=== PATIENT | female | born 1950 | race Hispanic/Latino ===

== ENCOUNTER 2024-09-22 20:09 | Emergency (ER) | payer OTHER ==
[~2024-09-22] VITALS: Ht 147.3 cm; Wt 102.1 kg
[2024-09-22 20:45] VITALS: BP 160/95; PULSE 65; RESP 16; TEMP 99.3; O2SAT 98
--- NOTE | 2024-09-22 21:24 | HMCIMG ---
HIP UNILAT 2-3VW LEFT CLINICAL HISTORY: pain COMPARISON: None TECHNIQUE: AP pelvis and lateral view of the left hip. images were obtained. FINDINGS: No obvious fracture or dislocation. No joint effusion. The soft tissues appear unremarkable. No radiopaque foreign bodies. IMPRESSION: No acute findings.
--- NOTE | 2024-09-22 21:39 | ERN ---
General Chief Complaint: Hip Pain/Injury Stated Complaint: C/O PAIN TO LEFT HIP; DENIES ANY TRAUMA Time Seen by MD: 20:12 Time Seen by Midlevel: 20:12 Source: patient History of Present Illness Initial Comments The patient is a 73-year-old female presenting to the emergency department with atraumatic left hip pain that started just prior to arrival. Patients specifically denies any direct injury to the area or falling. Denies any numbness or focal weakness to bilateral lower extremities. Denies any urinary/bowel incontinence. Patient states the pain is localized to the left lateral buttock area. No other symptoms reported Allergies: Coded Allergies: No Known Drug Allergies (Unverified Allergy, Unknown, 03/27/14) Past Medical History Past Medical History: Diabetes-Type II, High Cholesterol, Hypertension, Hypothyroid Past Surgical History: Other ROS Dictation CONSTITUTIONAL: Negative except for HPI HEAD/FACE: Negative except for HPI EENT: Negative except for HPI RESPIRATORY: Negative except for HPI GASTROINTESTINAL/ABDOMINAL: Negative except for HPI GENITOURINARY: Negative except for HPI MUSCULOSKELETAL: Negative except for HPI INTEGUMENTARY: Negative except for HPI NEUROLOGICAL/PSYCH: Negative except for HPI HEMATOLOGIC/LYMPHATIC: Negative except for HPI All Systems Negative, Except as noted above. 13 point review of systems assessed and all negative except for above. Physical Exam Physical Exam Dictation Vital Signs reviewed General Appearance: Alert, oriented x 3, no acute distress, well developed, nourished. Head and Face: non-traumatic. Eyes: PERRL, pink conjunctivas, eyelid no trauma, anterior chamber with arcus senilis. Ears: Pinnas intact and no signs of trauma or erythema ear canals clear and no discharge TM no erythema Nose: No discharge, no bleeding. Oropharynx: Mouth normal, tongue pink, pharynx clear,no erythema, tonsils no exudates, no abscesses noted, mucous membrane moist Neck: Supple, non-tender, no thyromegaly, no masses, no JVD, no bruits Breast:Deferred Chest:No tenderness, no crepitus, no paradoxical movement, no retractions Lungs:Clear, well-ventilated, symmetric, no rales, no wheezing, no rhonchi, no stridor, good breath sounds bilaterally Heart: Regular rate, regular rhythm, no murmur, no gallops Vascular: no peripheral edema, Abdomen: Soft, positive bowel sounds, nondistended, no guarding, nontender, no rebound, no masses no hepatomegaly, no splenomegaly, no Bravo's sign, no hernias. Rectal: Deferred Genital: Deferred Neurological: Normal speech, motor function intact, sensory function intact Musculoskeletal: Neck nontender, full range of motion, back nontender, full range of motion, Extremities: nontender, full range of motion Skin: Color pink, dry, no turgor, no rash, no lacerations, no abrasions, no contusions. Lymphatic: Deferred MDM MDM: The patient is a 73-year-old female presenting to the emergency department with atraumatic left hip pain that started just prior to arrival. Patients specifically denies any direct injury to the area or falling. Denies any numbness or focal weakness to bilateral lower extremities. Denies any urinary/bowel incontinence. Patient states the pain is localized to the left lateral buttock area. No other symptoms reported. On physical examination patient is in no acute distress. Patient is ambulatory without assistance and with a normal gait. Patient was neurologically intact. Sensation is intact to bilateral lower extremities. Patient was full range motion of bilateral lower extremities. There is reproducible pain with palpation to the left lateral gluteal region. There are no obvious signs of external trauma. There are no overlying rashes. The hip x-ray was obtained to rule out any acute fracture or dislocation however the x-ray does not show any acute injury. The patient was given pain medication in the emergency department but we will ultimately need to follow up with your primary care doctor. Differential diagnosis: Muscle strain, sciatica, fracture, dislocation, musculoskeletal pain There are no social concerns with this patient. Prescription drug management Prescriptions will include: None Medical management and examination interpretation discussions were had by me with other qualified healthcare professionals as indicated for the patient's care. ED Course Orders Procedure Category Date Status Time Hip Unilat 2-3vw Left RAD 09/22/24 Resulted 20:17 Ketorolac PHA 09/22/24 Complete Tromethamine 15mg/Ml 20:30 Hydrocodone/Apap PHA 09/22/24 Complete 10/325 Tab ([place] 10) 20:30 Current Medications Medications (Trade) Dose Ordered Sig/Ashlie Route PRN Reason Start Time Stop Time Status Last Admin Dose Admin Acetaminophen/ Hydrocodone Bitart (NORco 10) 1 tab ONCE ONCE PO 09/22/24 20:30 09/22/24 20:31 DC Ketorolac Tromethamine (toRADol) 15 mg ONCE ONCE IM 09/22/24 20:30 09/22/24 20:31 DC Vital Signs Date Time Temp Pulse Resp B/P (MAP) Pulse Ox O2 Delivery O2 Flow Rate FiO2 09/22/24 20:45 99.3 65 16 160/95 98 Room Air* 0 21 09/22/24 20:11 99.3 67 20 160/101 95 Room Air [facility] [address] [place] [id number] IMAGING REPORT Signed PATIENT: RADHA MOJICA MR#: [id number] : 1950 SEX: F AGE: 73 LOCATION: [facility] ORDER 17 STATUS: REG ER REPORT#: [id number] SERVICE 16 REASON: pain ORDERING PHYSICIAN: MAYRA MCGREGOR PROCEDURE: HIP U 2V L - HIP UNILAT 2-3VW LEFT HIP UNILAT 2-3VW LEFT CLINICAL HISTORY: pain COMPARISON: None TECHNIQUE: AP pelvis and lateral view of the left hip. images were obtained. FINDINGS: No obvious fracture or dislocation. No joint effusion. The soft tissues appear unremarkable. No radiopaque foreign bodies. IMPRESSION: No acute findings. DICTATED BY: ITZEL SCHMIDT DO DATE: 09/22/242120 ELECTRONICALLY SIGNED BY: ITZEL SCHMIDT DO DATE: 09/22/242123 DX & DISP Disposition: Discharge Departure Impression: Primary Impression: Muscle strain of gluteal region Condition: Stable Additional Instructions: Your left hip x-ray does not show any evidence of an acute fracture or dislocation. Your pain appears to be coming from the soft tissue of your left gluteal area. You will need to follow up with your primary care doctor in 2-3 days for repeat evaluation. Referrals: NEGAR PADILLA JR, MD (PCP) I have reviewed the case, and I agree with, Diagnosis and Plan I performed the substantive portion of the visit. I have reviewed and personally made and approve the management plan that is documented in the note by myself or the LJ. I acknowledge for responsibility for the patient's management plan. MAYRA MCGREGOR Sep 22, 2024 21:39
[2024-09-22] MEDS: ketOROlac 15MG/ML VIAL (15MG/ML) IM ONE (21:44)
[2024-09-22] MEDS: HYDROcodone/acetaMINOPHEN 10/325 MG TAB PO ONE (21:45)
== END 2024-09-22 22:05 | disposition home or self-care (01) ==
LOC: EDH 20:09
DX: S39.012A Strain of muscle, fascia and tendon of lower back, initial encounter (principal); E03.9 Hypothyroidism, unspecified; E11.9 Type 2 diabetes mellitus without complications; E78.00 Pure hypercholesterolemia, unspecified; I10 Essential (primary) hypertension; X58.XXXA Exposure to other specified factors, initial encounter; Y93.89 Activity, other specified; Y92.89 Other specified places as the place of occurrence of the external cause; Y99.8 Other external cause status
CPT/HCPCS: 99283; 73502; 96372; J1885

== ENCOUNTER 2024-10-02 16:48 | Emergency (ER) | payer OTHER ==
[~2024-10-02] VITALS: Ht 147.3 cm; Wt 99.8 kg
[2024-10-02] MEDS ORDERED: IBUP-2070 PO (17:22)
[2024-10-02] MEDS ORDERED: GABA-529 PO (17:22)
[2024-10-02] MEDS ORDERED: ACYC-138 PO (17:22)
--- NOTE | 2024-10-02 17:24 | ERN ---
ED Note History of Present Illness Stated Complaint: RIGHT FLANK PAIN, RASH Chief Complaint: Skin Rash/Abscess Time Seen by MD: 17:03 Time Seen by Midlevel: 17:05 Dictation: Ms Hensley is a 73-year-old female with history of obesity, type 2 diabetes, h ypertension, hyperlipidemia, and hypothyroidism presented to the emergency department this evening for evaluation of rash. She states that she noted painful, pruritic rash to left lateral hip last night. She states there are no open wounds and no drainage. She states she has been taking Tylenol no improvement. She denies having fever, chills, shortness of breath, cough, chest pain, palpitations, edema, abdominal pain, nausea, vomiting diarrhea, dysuria, headache, or dizziness. She states she has had no elevation of blood glucose readings. PCP: Dr. Analy Hensley. Allergies: Coded Allergies: No Known Drug Allergies (Unverified Allergy, Unknown, 03/27/14) Home Meds Active Scripts Acyclovir (Acyclovir) 800 Mg Tablet, 800 MG PO 5XDAY for 7 Days, #35 TAB 0 Refills Prov:ANTOINE GARCIA NP 10/02/24 Ibuprofen (Ibuprofen) 600 Mg Tablet, 1 TAB PO TID for pain for 10 Days, #30 TAB 0 Refills with food Prov:ANTOINE GARCIA NP 10/02/24 Gabapentin (Gabapentin) 100 Mg Capsule, 1 CAP PO TID for pain for 14 Days, #42 CAP 0 Refills Prov:ANTOINE GARCIA NP 10/02/24 Past Medical History Past Medical History: Diabetes-Type II, High Cholesterol, Hypertension, Hypothyroid Surgical History: Other PSYCH History: no pertinent psych hx History: Not Applicable RN Note Reviewed/Agreed w/PFSH: Yes Review of System Dictation REVIEW OF SYSTEMS: CONSTITUTIONAL: Patient denies fevers, chills, sweats and weight changes. EYES: Patient denies any visual symptoms. EARS, NOSE, AND THROAT: No difficulties with hearing. No symptoms of rhinitis or sore throat. CARDIOVASCULAR: Patient denies chest pains, palpitations, orthopnea and paroxysmal nocturnal dyspnea. RESPIRATORY: No dyspnea on exertion, no wheezing or cough. GI: No nausea, vomiting, diarrhea, constipation, abdominal pain, hematochezia or melena. : No urinary hesitancy or dribbling. No nocturia or urinary frequency. No abnormal urethral discharge. MUSCULOSKELETAL: Reports left hip pain. NEUROLOGIC: No chronic headaches, no seizures. Patient denies numbness, tingling or weakness. PSYCHIATRIC: Patient denies problems with mood disturbance. No problems with anxiety. ENDOCRINE: No excessive urination or excessive thirst. Denies elevation of blood glucose levels. DERMATOLOGIC: Reports painful, itchy rash to left lateral hip; onset last evening. Initial Vital Sign VS Vital Signs Date Time Temp Pulse Resp B/P (MAP) Pulse Ox O2 Delivery O2 Flow Rate FiO2 10/02/24 16:58 98.8 81 16 139/71 95 Room Air 0 10/02/24 17:50 21 Physical Exam Dictation Vital signs: Reviewed. Afebrile Constitutional: No acute distress. Non-toxic appearing. Head/Face: Normocephalic, atraumatic. Eyes: Periorbital areas with no swelling, redness, or edema. Lids and lashes are normal. Conjunctival injection is absent. Sclera anicteric. Pupils equal, round, reactive to light. ENT: Pinnas intact and no signs of trauma or erythema. Ear canals clear and no discharge. TMs no erythema. No nasal discharge or bleeding noted. Oropharynx with no exudate, redness, swelling, masses, exudates, or evidence of obstruction. Uvula midline. Mucous membranes moist. Neck: Trachea midline, no masses palpated, and no cervical lymphadenopathy. No swelling. Supple, full range of motion. Chest/Axilla: No tenderness, no crepitus, no paradoxical movement, no retra ctions. Cardiovascular: Regular rate, regular rhythm, no murmur, no gallops. Symmetric pulses. No peripheral edema. Normotensive. Respiratory: Respirations even and unlabored. Lung sounds clear; no wheezes, rales or rhonchi. Room air SpO2 95% Gastrointestinal: Inspection is normal. No distention is appreciated. Bowel sounds are normal. No mass or organomegaly . There is no tenderness. No rebound. No rigidity. No voluntary or involuntary guarding. No Bravo's sign. Neurological: Normal speech, gross motor function intact, gross sensory function intact. No focal weakness/Paresthesia. Musculoskeletal/Extremities: All extremities have full range of motion, no pain or tenderness on palpation. Symmetric pulses. Integumentary: Intact. Skin is normal color, warm and dry. Cap refill less than 3 seconds. She has pruritic, clustered rash to left lateral hip consistent with shingles infection ED Course ED Course Orders Procedure Category Date Status Time Hydrocodone/Apap PHA 10/02/24 Complete 5/325 (Dor[place] 5/325mg) 17:30 Current Medications Medications (Trade) Dose Ordered Sig/Ashlie Route PRN Reason Start Time Stop Time Status Last Admin Dose Admin Acetaminophen/ Hydrocodone Bitart (NORco 5/325MG) 1 tab ONCE ONCE PO 10/02/24 17:30 10/02/24 17:31 DC 10/02/24 17:46 Vital Signs Date Time Temp Pulse Resp B/P (MAP) Pulse Ox O2 Delivery O2 Flow Rate FiO2 10/02/24 17:50 98.2 75 16 135/65 100 Room Air* 0 21 10/02/24 16:58 98.8 81 16 139/71 95 Room Air 0 Uneventful ED course. Vital signs stable; normotensive and afebrile with room air SpO2 95%. Physical exam revealed painful, clustered rash along left lateral hip consistent with shingles infection. She received a dose [place] x1 for dis comfort. Medical Decision Making MDM MDM: Differential diagnosis:Shingles infection, cellulitis, insect/spider bite/sting Rationale: Tests considered and ordered secondary to shared decision making include: Previous outside records reviewed: Old ER visits. Risk of complication and/or morbidity or mortality of patient management: None Medications-Per medication reconciliation Need for hospitalization: Patient does not meet criteria for hospitalization. Need for emergency major/minor surgery: No There are no social concerns with this patient. Prescription drug management: Acyclovir, gabapentin Prescriptions will include symptomatic care Patient's prior external medical records from other ER visits were reviewed by me as indicated. Prior testing and results from previous visits were reviewed. Prior tests were taken into account with medical decision making and resource utilization, independent historian/historians were used to obtain complete medical history. I independently interpreted the test that were performed, results were reviewed by me and considered findings on radiology if ordered. Medical management and examination interpretation discussions were had by me with other qualified healthcare professionals as indicated for the patient's care. DX & DISP Disposition: Discharge Departure Impression: Primary Impression: Shingles rash Condition: Stable Scripts Acyclovir (Acyclovir) 800 Mg Tablet 800 MG PO 5XDAY for 7 Days, #35 TAB 0 Refills Prov: LUTRICK,ANTOINE M [employer] 10/02/24 Ibuprofen (Ibuprofen) 600 Mg Tablet 1 TAB PO TID for pain for 10 Days, #30 TAB 0 Refills with food Prov: ANTOINE GARCIA [employer] 10/02/24 Gabapentin (Gabapentin) 100 Mg Capsule 1 CAP PO TID for pain for 14 Days, #42 CAP 0 Refills Prov: ANTOINE GARCIA [employer] 10/02/24 Additional Instructions: Rest. Drink plenty of fluids. Monitor blood glucose readings. Start acyclovir as soon as possible. Gabapentin 3 times a day for discomfort. Ibuprofen 600 mg every 8 hours as needed for discomfort. Wash area gently with mild soap; pat dry. Follow up with your primary care provider in the next 3-5 days. Return to the emergency department for worsening of symptoms or concerns. Referrals: NEGAR PADILLA JR, MD (PCP) ANALY PERALTA DO Time of Disposition: 17:23 I performed the substantive portion of the visit. I have reviewed and personally made and approve the management plan that is documented in the notes by myself or the LJ. I acknowledge full responsibility for the patient's management plan. ANTOINE GARCIA NP Oct 02, 2024 17:24 ZENIA VALLEJO MD Oct 03, 2024 12:56
--- NOTE | 2024-10-02 17:32 | NUR ---
PT TO FT AT THIS TIME
[2024-10-02] MEDS: HYDROcodone/APAP 5/325 1 TAB TABLET PO ONE (17:46)
[2024-10-02 17:50] VITALS: BP 135/65; PULSE 75; RESP 16; TEMP 98.3; O2SAT 100
== END 2024-10-02 17:59 | disposition home or self-care (01) ==
LOC: EDH 16:48
DX: B02.9 Zoster without complications (principal); E11.9 Type 2 diabetes mellitus without complications; E03.9 Hypothyroidism, unspecified; E78.00 Pure hypercholesterolemia, unspecified; I10 Essential (primary) hypertension; Z79.1 Long term (current) use of non-steroidal anti-inflammatories (NSAID); Z79.899 Other long term (current) drug therapy
CPT/HCPCS: 99283